=== PATIENT | male | born 1990 | race Two or more races ===

== ENCOUNTER 2017-12-15 06:36 | Emergency (ER) | payer OTHER ==
[~2017-12-15] VITALS: Ht 175.3 cm; Wt 99.3 kg
[2017-12-15 06:50] VITALS: Ht 175.3 cm; Wt 99.3 kg
[2017-12-15 07:34] LABS: BASOPHIL % 0.4 % (0-2); PLATELET COUNT 319 x10^3mcL (130-400); RED CELL DISTRIBUTION WIDTH 13.6 % (11.5-14.5)
[2017-12-15 07:43] LABS: CALCIUM 8.6 mg/dL (8.5-10.1); CARBON DIOXIDE 24.2 mmol/L (21-32); CHLORIDE SERUM 102 mmol/L (98-107); CREATININE SERUM 1.1 mg/dL (0.7-1.3); GFR1 > 60 mL/min; GLUCOSE SERUM 114 mg/dL (74-106); POTASSIUM SERUM 3.1 mmol/L (3.5-5.1); SODIUM SERUM 139 mmol/L (136-145)
[2017-12-15 07:43] LABS: AMPHETAMINE QUAL UR POSITIVE (NEG <=1000)
[2017-12-15 07:47] LABS: ALKALINE PHOSPHATASE 69 U/L (46-116); ALT/SGPT 38 U/L (16-63); AST/SGOT 15 U/L (15-37); BILIRUBIN TOTAL 0.4 mg/dL (0.20-1.00); TOTAL PROTEIN, SERUM 7.6 g/dL (6.4-8.2)
[2017-12-15 12:33] VITALS: BP 129/80
== END 2017-12-15 12:33 | disposition home or self-care (01) ==
LOC: ED 06:36
PROVIDERS: Emergency Medicine
DX: F15.10 Other stimulant abuse, uncomplicated (principal); R07.9 Chest pain, unspecified
CPT/HCPCS: 83880; J2060; J7030; Q0092